=== PATIENT | male | born 1995 | race Hispanic/Latino ===

== ENCOUNTER 2023-03-23 19:00 | Emergency (ER) | payer OTHER ==
[~2023-03-23] VITALS: Ht 182.9 cm; Wt 89.9 kg
[2023-03-23] MEDS ORDERED: CEPHALEXIN500 MG PO (19:52)
[2023-03-23] MEDS ORDERED: PERCOCET 5-3251 EACH PO (19:53)
[2023-03-23 20:18] LABS: BASOPHILS 0.3 % (0-2); EOSINOPHILS 1.7 % (0-6); HEMATOCRIT 41.5 % (35.0-50.0); HEMOGLOBIN 14.2 g/dL (12.0-18.0); LYMPHOCYTES 21.7 % (24-44); MCH 29.9 (27-36); MCHC 34.1 g/dl (30-36); MCV 87.6 fl (81-99); MONOCYTES 12.1 % (0-12); NEUTROPHILS 64.2 % (39-80); PLATELET COUNT 180 K/uL (140-440); RBC 4.74 M/ul (4.3-5.7); RDW 12.6 (10.5-15.0)
[2023-03-23 20:33] LABS: ALBUMIN 3.5 g/dL (3.4-5.0); ALBUMIN/GLOBULIN RATIO 0.83 (1.1-2.4); BILIRUBIN, TOTAL 1.1 ng/dL (0.2-1.0); BUN/CREATININE RATIO 11.2 (6.0-28.6); CALCIUM 8.9 mg/dL (8.5-10.1); CREATININE, SERUM 1.16 mg/dL (0.70-1.30); PROTEIN, TOTAL 7.7 g/dL (6.4-8.2)
[2023-03-23] MEDS ORDERED: DOXYCYCLINE HY100 MG PO (21:22)
[2023-03-23 21:34] VITALS: BP 124/72
== END 2023-03-23 21:35 | disposition home or self-care (01) ==
LOC: ED 19:00
PROVIDERS: Internal Medicine
DX: L03.114 Cellulitis of left upper limb (principal); S50.312A Abrasion of left elbow, initial encounter; W31.89XA Contact with other specified machinery, initial encounter; Y99.0 Civilian activity done for income or pay; Z79.899 Other long term (current) drug therapy
CPT/HCPCS: 36415; 73080; 80053; 85025; A9270